=== PATIENT | female | born 2005 | race Caucasian/White ===

== ENCOUNTER 2024-01-28 19:47 | Inpatient (IN) ==
[2024-01-28 20:31] LABS: Basophils # (auto) 0.09 K/uL (0.00-0.20); Basophils % (auto) 0.9 %; Eosinophils # (auto) 0.09 K/uL (0.00-0.50); Eosinophils % (auto) 0.9 %; Hematocrit (blood only) 39.1 % (37.0-47.0); Hemoglobin 13.5 g/dl (12.0-16.0); Immature Granulocytes # (auto) 0.04 K/uL (0.01-0.20); Immature Granulocytes % (auto) 0.4 %; Lymphocytes # (auto) 3.17 K/uL (1.20-3.40); Lymphocytes % (auto) 32.7 %; Mean Corpuscular Hemoglobin 30.8 pg (25.0-34.0); Mean Corpuscular Hgb Conc 34.5 g/dL (32.0-36.0); Mean Corpuscular Volume 89.1 fL (80.0-100.0); Mean Platelet Volume 8.9 fL (9.4-12.4); Monocytes # (auto) 0.81 K/uL (0.11-0.59); Monocytes % (auto) 8.4 %; Neutrophils # (auto) 5.48 K/uL (1.40-6.50); Neutrophils % (auto) 56.7 %; Platelet Count 391 K/uL (130-400); RDW Coefficient of Variation 11.9 % (11.5-14.5); RDW Standard Deviation 38.7 fL (36.4-46.3); Red Blood Count 4.39 M/uL (4.20-5.40); White Blood Count 9.68 K/ul (4.8-10.8)
[2024-01-28 20:37] LABS: iSTAT Hemoglobin 13.6 g/dl (12.0-16.0); iSTAT Ionized Calcium 1.21 mmol/l; iSTAT Potassium 3.7 mmol/L (3.3-5.0)
[2024-01-28] MEDS: SODIUM CHLORIDE 0.9% 1,000 ML IV SCH (20:45)
[2024-01-28 20:46] LABS: Albumin Level 4.7 gm/dl (3.4-5.0); BUN Creatinine Ratio 16.9 (10-20); Bilirubin,Total 0.4 mg/dl (0.2-1.0); Calcium 9.4 mg/dl (8.6-10.3); Creatinine Clr Calc Pharmacy 92.9 ml/min; Globulin 2.4 gm/dl (2.5-4.0); Potassium 3.7 mmol/L (3.5-5.1); Total Protein 7.1 gm/dl (6.0-8.3)
--- NOTE | 2024-01-28 20:50 | CT Scan Report ---
Exam(s): CT C SPINE EXAM: CT Cervical Spine Without Intravenous Contrast CLINICAL HISTORY: Reason for exam: trauma. TECHNIQUE: Axial computed tomography images of the cervical spine without intravenous contrast. CTDI is 23.06 mGy and DLP is 447.11 mGy-cm. Automated exposure control was utilized for the study. A dose lowering technique was utilized adhering to the principles of ALARA. COMPARISON: No relevant prior studies available. FINDINGS: Vertebrae: Congenital nonunion of the posterior arch of C1. No acute fracture. Discs/spinal canal/neural foramina: No acute findings. No spinal canal stenosis. Soft tissues: Unremarkable. IMPRESSION: No acute findings in the cervical spine. Electronically signed by: Jad Horton MD 01/28/24 20:48 PM
--- NOTE | 2024-01-28 20:53 | CT Scan Report ---
Exam(s): CT HEAD Without Contrast EXAM: CT Head Without Intravenous Contrast CLINICAL HISTORY: Reason for exam: trauma. TECHNIQUE: Axial computed tomography images of the head/brain without intravenous contrast. CTDI is 38.17 mGy and DLP is 546.36 mGy-cm. Automated exposure control was utilized for the study. A dose lowering technique was utilized adhering to the principles of ALARA. COMPARISON: No relevant prior studies available. FINDINGS: Brain: Tiny focus of intraparenchymal hemorrhage involving the left frontal lobe. No significant white matter disease. Ventricles: Unremarkable. No ventriculomegaly. Bones/joints: Unremarkable. No acute fracture. Soft tissues: Soft tissue laceration posterior scalp. Sinuses: Unremarkable as visualized. No acute sinusitis. Mastoid air cells: Unremarkable as visualized. No mastoid effusion. IMPRESSION: Tiny focus of intracranial hemorrhage involving left frontal lobe short interval follow-up CT recommended. Soft tissue laceration posterior scalp. Communications: Call Doctor Intracranial Hemorrhage Electronically signed by: Jad Horton MD 01/28/24 20:51 PM
[2024-01-28] MEDS: ONDANSETRON INJ 2 MG/ML 2 ML VIAL IV STA (20:54)
[2024-01-28] MEDS: MoRPHine SULFATE 2 MG/ML CARP IV STA (20:54)
[2024-01-28] MEDS: ACETAMINOPHEN 1,000 MG/100 ML VIAL IV STA (20:55)
[2024-01-28 21:00] LABS: Partial Thromboplastin Time 26 Seconds (21-31); Prothrombin Time 10.8 Seconds (9.0-12.0)
--- NOTE | 2024-01-28 21:07 | Emergency Department Note ---
ED Visit Note I was asked by my attending, Dr. Martinez, to assist with a head laceration repair. The patient sustained a laceration to the left posterior scalp, approximately 1.5 cm. There is no foreign body present, bleeding is currently controlled. Using sterile procedure, the wound bed was prepped and cleansed with sterile saline and Betadine. No foreign body was retained in the wound. Wound edges were approximated using 2, jason which will need to be removed in 7-10 days. The patient tolerated the procedure well. Bacitracin was applied to the wo und as well as bandage. Please refer to Dr. Martinez's documentation for further patient workup and care.
--- NOTE | 2024-01-28 21:23 | XRay Report ---
Exam(s): XR CXR 1 VIEW EXAM: XR Chest, 1 View CLINICAL HISTORY: Reason for exam: Trauma. TECHNIQUE: Frontal view of the chest. COMPARISON: No relevant prior studies available. FINDINGS: Lungs: Unremarkable. No consolidation. Pleural space: Unremarkable. No pneumothorax. Heart: Unremarkable. No cardiomegaly. Mediastinum: Unremarkable. Normal mediastinal contour. Bones/joints: Unremarkable. No acute fracture. IMPRESSION: Normal chest x-ray. Electronically signed by: Jad Horton MD 01/28/24 21:22 PM
[2024-01-28 22:31] LABS: Appearance Urine Clear (Clear); Bilirubin Urine Negative (Negative); Blood Urine Negative (Negative); Color Urine Yellow; Glucose Urine UA Negative (Negative); Ketones Urine Negative (Negative); Leukocyte Esterase Urine Negative (Negative); Nitrite Urine Negative (Negative); Protein Urine Negative (Negative); Specific Gravity Urine 1.016 (1.000-1.030); Urobilinogen Urine Negative (Negative)
[2024-01-28] MEDS: LIDOCAINE 1% LOCAL 20 ML VIAL INFIL ONE (22:38)
--- NOTE | 2024-01-28 23:41 | CT Scan Report ---
Exam(s): CT HEAD Without Contrast EXAM: CT Head Without Intravenous Contrast CLINICAL HISTORY: Reason for exam: ICH, reevaluate size. TECHNIQUE: Axial computed tomography images of the head/brain without intravenous contrast. CTDI is 36.74 mGy and DLP is 625.8 mGy-cm. Automated exposure control was utilized for the study. A dose lowering technique was utilized adhering to the principles of ALARA. COMPARISON: Exam performed earlier on the same date FINDINGS: Brain: Continued interval evolution of tiny focus of intraparenchymal hemorrhage involving the left frontal lobe. This area of hemorrhage is much less conspicuous on the current exam. No new areas of intracranial hemorrhage. No significant white matter disease. Ventricles: Unremarkable. No ventriculomegaly. Bones/joints: Unremarkable. No acute fracture. Soft tissues: Unremarkable. Sinuses: Unremarkable as visualized. No acute sinusitis. Mastoid air cells: Unremarkable as visualized. No mastoid effusion. IMPRESSION: Continued evolution of tiny focus of intraparenchymal hemorrhage within the left frontal lobe. This area is much less conspicuous on the current study. Electronically signed by: Jad Horton MD 01/28/24 23:40 PM
--- NOTE | 2024-01-29 00:12 | History & Physical Report ---
Date of Service January 29, 2024 Assessment & Plan (1) Intracranial hemorrhage: Plan: Traumatic brain injury - left frontal lobe intracranial hemorrhage - improving. Head lac stapled in the ED - will need removed in 7-10 days. Moderate headache. No neurological deficits. Will monitor bleed with a CT Head at 12 hours and 24 hours after incident. Tylenol for pain. If needed can do morphine, but ideally would avoid medications that can change neurological status. Q2H neuro checks, tele unit CT Head @ 12 hours and 24 hours Seizure precautions Tylenol and Zofran PRN (2) Traumatic brain injury: Plan: Anticipate concussion symptoms for at least the next two weeks - avoid/minimize screen time, dim lights, no contact sports or high impact exercises, avoid NSAIDs. Depending on how symptomatic she is, she may benefit from a brief absence from school. Will need school note. (3) Alcohol intoxication: Plan: Ethyl alcohol 233.5 on presentation. Appears clinically sober. Low likelihood for withdrawal. Will continue to monitor. Plan Code status: full DVT ppx: chemo ppx contraindicated, SCDs FENGI: Regular Dispo: Tele unit History of Present Illness Chief Complaint: fall Primary Care Provider: [facility] 18 y/o with no significant PMHx here after a fall. Her friend picked her up out of no where and then fell down the stairs with her. About 10 stairs total. Patient struck the back of her head and started bleeding. No loss of consciousness. She remembers the entire incident. No nausea or vomiting following the episode. Patient with a pretty significant headache. No other symptoms. No nausea, CP, SOB, abdominal pain, or change in mental status. Patient was found to have a small focus of hemorrhage in the left frontal lobe. Improving on repeat CT. ED physician did speak to [place] [facility] [place] and they felt she was stable for admission and monitoring here. Patient and mother are concerned about school as finals are coming up. 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 Beliefs That Will Affect Care: None Current Living Situation: Other Feels Safe at Home: Yes Assistive Devices: None Review of Systems 2 Review of Systems: See HPI Physical Exam 2 Physical Exam: Gen: well appearing patient in NAD HEENT: AT TN MMM OP clear Resp: CTAB no wheezing no increased work of breathing CV: RRR no m/r/g clinically well perfused Abd: non-distended MSK: no obvious deformities Skin: no rashes or bruising Neuro: alert and oriented, PERRL, EOMI, CN II-XII tested and intact, vision and hearing grossly intact, intact finger to nose, negative rhomberg, able to spell 'world' forwards and backwards, normal gait, sensation to light touch intact and symmetric, 5/5 strength in all muscle groups Psych: appropriate mood and affect Results & Data Results & Data Vital Signs (Past 12 Hours) Vital Signs Temp Pulse Pulse Resp BP BP Pulse Ox 01/28/24 23:00 86 19 99/72 L 99 01/28/24 22:00 105 H 20 127/71 99 01/28/24 21:00 100 H 20 115/78 99 01/28/24 20:42 103 H 22 119/72 99 01/28/24 20:15 116 H 22 99 01/28/24 20:14 105 H 22 98 01/28/24 20:13 128 H 01/28/24 20:00 98 01/28/24 20:00 22 98 01/28/24 20:00 36.8 C 129 H 22 146/111 H 99 01/28/24 19:53 36.8 C 133 H 20 146/111 H 100 O2 Del Method 01/28/24 23:00 Room Air 01/28/24 22:00 Room Air 01/28/24 21:00 Room Air 01/28/24 20:42 Room Air 01/28/24 20:15 Room Air 01/28/24 20:14 Room Air 01/28/24 20:13 01/28/24 20:00 Room Air 01/28/24 20:00 Room Air 01/28/24 20:00 Room Air 01/28/24 19:53 Room Air Laboratory Results 01/28/24 20:03 01/28/24 20:03 Diagnostic Findings Cervical Spine CT 01/28/24 20:14 FINDINGS: Vertebrae: Congenital nonunion of the posterior arch of C1. No acute fracture. Discs/spinal canal/neural foramina: No acute findings. No spinal canal stenosis. Soft tissues: Unremarkable. IMPRESSION: No acute findings in the cervical spine. Chest X-Ray 01/28/24 20:14 FINDINGS: Lungs: Unremarkable. No consolidation. Pleural space: Unremarkable. No pneumothorax. Heart: Unremarkable. No cardiomegaly. Mediastinum: Unremarkable. Normal mediastinal contour. Bones/joints: Unremarkable. No acute fracture. IMPRESSION: Normal chest x-ray. Head CT 01/28/24 20:14 EXAM: FINDINGS: Brain: Tiny focus of intraparenchymal hemorrhage involving the left frontal lobe. No significant white matter disease. Ventricles: Unremarkable. No ventriculomegaly. Bones/joints: Unremarkable. No acute fracture. Soft tissues: Soft tissue laceration posterior scalp. Sinuses: Unremarkable as visualized. No acute sinusitis. Mastoid air cells: Unremarkable as visualized. No mastoid effusion. IMPRESSION: Tiny focus of intracranial hemorrhage involving left frontal lobe short interval follow-up CT recommended. Soft tissue laceration posterior scalp. Head CT 01/28/24 23:00 FINDINGS: Brain: Continued interval evolution of tiny focus of intraparenchymal hemorrhage involving the left frontal lobe. This area of hemorrhage is much less conspicuous on the current exam. No new areas of intracranial hemorrhage. No significant white matter disease. Ventricles: Unremarkable. No ventriculomegaly. Bones/joints: Unremarkable. No acute fracture. Soft tissues: Unremarkable. Sinuses: Unremarkable as visualized. No acute sinusitis. Mastoid air cells: Unremarkable as visualized. No mastoid effusion. IMPRESSION: Continued evolution of tiny focus of intraparenchymal hemorrhage within the left frontal lobe. This area is much less conspicuous on the current study. Supervising Physician Co-Signing Physician Notes Patient seen and examined, chart reviewed, case discussed with Dr. Valentino and I agree with the assessment and plan as above. In brief, patient is a 18yo female s/p fall down 10 stairs after her friend picked her up and fell with her. She has a small occipital laceration which has been repaired with 2 jason. Small left frontal intraparenchymal hemorrhage noted on initial CT - repeat CT at 3 hours with improvement in hemorrhage. Patient denies LOC and has full recollection of the entire event. Intoxicated at the time - EtOH level 233.5 upon arrival Denies neck pain - CT of the neck NEGATIVE On exam patient is AA&O x 4, sitting up in bed, NAD Skin - laceration repair with 2 jason, well approximated with no active bleeding. No abrasions/tears elsewhere HEENT - PERRL, MMM, Neck supple and non-tender, no Salcido's sign or Raccoon eyes Heart - +S1/S2, regular, no m/r/g Lungs- CTA Abd - soft, NT/ND Ext - warm, well perfused Neuro - AA&O x 4, MS 5/5 in UE/LE bilaterally Labs and images reviewed Assessment/Plan 18yo female s/p fall down appx 10 stairs with posterior head trauma/laceration, small left frontal intraparenchymal hemorrhage. Suspect coup-counter coup injury mechanism. Hemorrhage has improved on repeat CT imaging. -Will admit for ongoing monitoring, neuro check with [facility] q 2 hours -Repeat CT head at 12 and 12 hours to assure continued improvement of IPH and monitor for SDH -Concussion precautions including brain rest and physical rest for 24 - 48 hours with gradual return to exercise and daily activities as tolerated -Remainder as above + Resident Activity Tracking Resident Involvement: Resident Care Provided Care Provided: Adult Hospital Medicine (2) Traumatic brain injury Encounter type: initial encounter Loss of consciousness presence/duration: w ithout LOC Qualified Code(s): S06.9X0A - Unspecified intracranial injury without loss of consciousness, initial encounter (3) Alcohol intoxication Complication of substance-induced condition: uncomplicated Qualified Code(s): F10.920 - Alcohol use, unspecified with intoxication, uncomplicated
[2024-01-29] MEDS ORDERED: ONDANSETRON INJ 2 MG/ML 2 ML VIAL IV PRN (02:17)
[2024-01-29] MEDS ORDERED: POLYETHYLENE (MIRALAX) 17 GM PACK PO PRN (02:17)
[2024-01-29 02:48] VITALS: O2SAT 99
[2024-01-29] MEDS: ACETAMINOPHEN 500 MG TAB PO PRN (04:07)
[2024-01-29 05:55] LABS: Hematocrit (blood only) 34.8 % (37.0-47.0); Mean Corpuscular Hemoglobin 30.9 pg (25.0-34.0); Mean Corpuscular Hgb Conc 34.5 g/dL (32.0-36.0); Mean Corpuscular Volume 89.7 fL (80.0-100.0); Mean Platelet Volume 9.1 fL (9.4-12.4); Platelet Count 312 K/uL (130-400); RDW Standard Deviation 39.6 fL (36.4-46.3); Red Blood Count 3.88 M/uL (4.20-5.40); White Blood Count 8.43 K/ul (4.8-10.8)
[2024-01-29 06:12] LABS: BUN Creatinine Ratio 16.4 (10-20); Calcium 8.6 mg/dl (8.6-10.3); Potassium 3.6 mmol/L (3.5-5.1)
[2024-01-29 06:42] VITALS: RESP 18
--- NOTE | 2024-01-29 07:04 | Hospitalist Progress Note ---
Date of Service January 29, 2024 Assessment & Plan (1) Intracranial hemorrhage: (2) Traumatic brain injury: (3) Alcohol intoxication: Plan Pt is a 18 yo female with no significant past medical history who presents to the hospital on 01/27 for traumatic brain injury after falling down a flight of stairs at a constitution party. Traumatic brain injury Intracranial hemorrhage - head CT noted left frontal lobe intracranial hemorrhage - improved on repeat scan pending 24 hr scan at 8 pm tonight for stability - head lac stapled in the ED that will need removed in 7-10 days - anticipate concussion symptoms for at least the next two weeks - avoid/minimize screen time, dim lights, no contact sports or high impact exercises, avoid NSAIDs. - Depending on how symptomatic she is, she may benefit from a brief absence from school. - prn meds in for pain/nausea Alcohol intoxication - Ethyl alcohol 233.5 on presentation. Appears clinically sober. Low likelihood for withdrawal. Will continue to monitor. DVT ppx: chemo ppx contraindicated, SCDs Admission and Anticipated Discharge Date Admission Date: January 29, 2024 Subjective Today, pt seen at bedside this morning. She states she is feeling okay this morning, just tired after a long night with a headache. No nausea or vomiting, no vision changes such as double vision or blurry vision. Headache is not worsening. Review of Systems Review of Systems: Per HPI. Physical Exam Physical Exam: General:Alert and oriented, no acute distress, HEENT: Normocephalic, moist oral mucosa, Cardio: Regular rate and rhythm, no murmur, Resp:Lungs clear to auscultation b/l, no wheezes or rhonchi, Skin: Warm, pink, dry, Results & Data Results & Data Vital Signs (Past 12 Hours) Vital Signs Temp Pulse Pulse Resp BP BP Pulse Ox 01/29/24 06:41 36.8 C 75 18 107/63 01/29/24 02:47 36.8 C 90 19 116/62 99 01/29/24 02:17 36.7 C 90 16 110/72 01/29/24 02:14 99 H 01/29/24 01:00 83 19 116/71 97 01/29/24 00:00 90 17 120/70 98 01/28/24 23:00 86 19 99/72 L 99 01/28/24 22:00 105 H 20 127/71 99 01/28/24 21:00 100 H 20 115/78 99 01/28/24 20:42 103 H 22 119/72 99 01/28/24 20:15 116 H 22 99 01/28/24 20:14 105 H 22 98 01/28/24 20:13 128 H 01/28/24 20:00 98 01/28/24 20:00 22 98 01/28/24 20:00 36.8 C 129 H 22 146/111 H 99 01/28/24 19:53 36.8 C 133 H 20 146/111 H 100 O2 Del Method 01/29/24 06:41 01/29/24 02:47 Room Air 01/29/24 02:17 Room Air 01/29/24 02:14 01/29/24 01:00 Room Air 01/29/24 00:00 Room Air 01/28/24 23:00 Room Air 01/28/24 22:00 Room Air 01/28/24 21:00 Room Air 01/28/24 20:42 Room Air 01/28/24 20:15 Room Air 01/28/24 20:14 Room Air 01/28/24 20:13 01/28/24 20:00 Room Air 01/28/24 20:00 Room Air 01/28/24 20:00 Room Air 01/28/24 19:53 Room Air Resident Activity Tracking Resident Involvement: Resident Care Provided Care Provided: Adult Hospital Medicine (2) Traumatic brain injury Encounter type: initial encounter Loss of consciousness presence/duration: without LOC Qualified Code(s): S06.9X0A - Unspecified intracranial injury without loss of consciousness, initial encounter (3) Alcohol intoxication Complication of substance-induced condition: uncomplicated Qualified Code(s): F10.920 - Alcohol use, unspecified with intoxication, uncomplicated
[2024-01-29 07:31] VITALS: BP 102/61; TEMP 97.9
--- NOTE | 2024-01-29 08:07 | Electrocardiogram Report ---
Test Reason : Blood Pressure : */* mmHG Vent. Rate : 96 BPM Atrial Rate : 96 BPM P-R Int : 142 ms QRS Dur : 82 ms QT Int : 348 ms P-R-T Axes : 80 81 45 degrees QTcB Int : 439 ms Normal sinus rhythm Normal ECG No previous ECGs available Confirmed by Pedrito Becerra ([id number]) on 01/29/2024 8:07:12 AM Referred By: REFERRED SELF Confirmed By: Pedrito Becerra
--- NOTE | 2024-01-29 09:09 | CT Scan Report ---
CT head/brain wo con CLINICAL HISTORY: 18 years-old Female with brain bleed 12 hour repeat. Acute head trauma TECHNIQUE: Multiple axial CT images of the head were obtained without contrast. A dose lowering tech nique was utilized adhering to the principles of ALARA. CT DOSE: 547.75 mGy.cm COMPARISON: None. FINDINGS: No acute intracranial hemorrhage, midline shift, intracranial mass, hydrocephalus, territorial ischem ia or abnormal extra-axial collection. The calvarium is intact. The paranasal sinuses, mastoid air cells, and middle ear cavities are clear . IMPRESSION: 1. No acute intracranial abnormality, specifically there is no evidence of acute intracranial hemorrh age. The previously questioned ill-defined focus of increased attenuation within the anterior left fr ontal lobe was artifactual. 2. No acute calvarial fracture. Findings were discussed with Dr. Shana Leonard on 01/29/2024 at 9:07 AM. ACT 112: Negative or not required by law. The above report was generated using voice recognition software. It may contain grammatical, syntax o r spelling errors. Electronically signed by: Thuan Delacruz M.D. 01/29/2024 9:07 AM
--- NOTE | 2024-01-29 09:28 | Discharge Summary ---
Date of Service January 29, 2024 Admission HPI Per Admitting Provider 18 y/o with no significant PMHx here after a fall. Her friend picked her up out of no where and then fell down the stairs with her. About 10 stairs total. Patient struck the back of her head and started bleeding. No loss of consciousness. She remembers the entire incident. No nausea or vomiting following the episode. Patient with a pretty significant headache. No other symptoms. No nausea, CP, SOB, abdominal pain, or change in mental status. Patient was found to have a small focus of hemorrhage in the left frontal lobe. Improving on repeat CT. ED physician did speak to [facility] @ [facility] and they felt she was stable for admission and monitoring here. Patient and mother are concerned about school as finals are coming up. Admission Exam Per Admitting Provider General:Alert and oriented, no acute distress, HEENT: Normocephalic, moist oral mucosa, Cardio: Regular rate and rhythm, no murmur, Resp:Lungs clear to auscultation b/l, no wheezes or rhonchi, Skin: Warm, pink, dry, Principal Diagnosis Traumatic head injury Discharge Exam General:Alert and oriented, no acute distress, HEENT: Normocephalic, moist oral mucosa, Cardio: Regular rate and rhythm, no murmur, Resp:Lungs clear to auscultation b/l, no wheezes or rhonchi, Skin: Warm, pink, dry, Discharge Data Allergies Allergy/AdvReac Type Severity Reaction Status Date / Time banana Allergy Unknown Unverified 01/29/24 00:36 Consultations 01/28/24 23:57 ED Decision to Admit Stat Ordered Studies 01/28/24 20:14 CT cervical spine wo con Stat CT head/brain wo con Stat 01/28/24 23:00 CT head/brain wo con Urgent 01/29/24 08:00 CT head/brain wo con Routine 01/29/24 20:00 CT head/brain wo con Routine Hospital Course (1) Intracranial hemorrhage: (2) Traumatic brain injury: (3) Alcohol intoxication: Plan Pt is a 18 yo female with no significant past medical history who presents to the hospital on 01/27 for traumatic brain injury after falling down a flight of stairs at a constitution party. Traumatic brain injury without intracranial hemorrhage - head CT noted left frontal lobe intracranial hemorrhage on admission-> 12 hour scan this morning noting this was most likely artifact as this foci is completely absent on [address] scans - head lac stapled in the ED that will need removed in 7-10 days - anticipate concussion symptoms for at least the next two weeks - avoid/minimize screen time, dim lights, no contact sports or high impact exercises, avoid NSAIDs. - will write for off of school until after thanksgiving - to f/u with pcp after discharge Total Time Total Time Spent Total Time Spent (In Minutes): As per attending attestation Discharge Plan Discharge Items Patient Disposition: Home - Self-Care Reason For Visit: FALL Discharge Diagnosis: Traumatic brain injury Activity: As commented below Activity Comment: Activity as tolerated Non-emergency contact: Primary Care Provider Call non-emergency contact if: you have any medication questions, your symptoms worsen, your pain is not controlled and your pain is worsening Follow-up/Referrals: [facility] [Primary Care Provider] - Diet: Regular Addtl Attending Provider Instructions: You were admitted to the hospital for a traumatic brain injury following a fall down a flight of stairs. You had a CT scan done of your head which initially showed maybe a small area of bleed in the brain that was noted on repeat scans to be totally gone, suggesting it was just machine artifact, meaning you had a head injury but we do not believe there is actually an associated brain bleed. You may notice over the coming weeks concussion symptoms such as lingering headache and difficulty concentrating. Try to minimize or avoid screen time as much as possible and dim lights. You should avoid contact sports and high impact exercises for at least the next 1 month unless advised otherwise by your primary care physician. You may take tylenol for pain for the rest of today. You can take up to 1000 mg three times daily (every 8 hours). You may take ibuprofen products (ex. Advil, Aleve, naproxen) starting tomorrow if desired for headache relief, but no more than 600 mg at a time. If ibuprofen is not enough you can take ibuprofen and tylenol (they are different medications and do not directly interact so they are okay to take at the same time). You will need to follow up with your primary care physician or return to the ER in 7-10 days for the jason to be removed. Please do not scrub the laceration for the next few days as it closes up and starts to heal. You may shower and let water run over the area. Do not submerge the area such as in a hot tub or pool until your jason are removed. Please call your primary care physician tomorrow to set up a hospital follow-up appointment this upcoming week. If you do not have a primary care physician please contact the [facility] office at [address] (the building directly in front of the hospital) to establish with a physician. Our number is [phone]. We have attached a school note giving you off this next week and next week of school. If you need off longer, please talk to your primary care physician. Pending Studies at Discharge: No Stand-Alone Forms: My [facility] [employer], Work/School Release Medications and DC Order Prescriptions: No Action No Known Home Medications Discharge Orders: Discharge Order (Routine); Ordered 01/29/24 Ordered By: Marina Knowles/Other Patient Handouts: Coping with Concussion, After a Concussion Admission Data Admit Date/Time: 01/29/24 00:53 Attending Provider: Shana Leonard Admit Provider: Franchesca Valentino Primary Care Provider: [facility] Other Providers: Jennifer Guillen Other Interventions: Discharge Summary Assessment (RN) Last Done: 01/29/24 09:47 Supervising Physician Co-Signing Physician Notes Attending Physician Supervision Note: I independently interviewed and examined the patient and verified the cool history and physical, reviewed labs and image studies and agree with findings and care plan noted above. Resident Activity Tracking Resident Involvement: Resident Care Provided Care Provided: Adult Hospital Medicine
[2024-01-29 09:52] VITALS: PULSE 97
[2024-01-29] MEDS: INFLUENZA VACC TS2024-25(6m+)/PF (IIV3) 0.5mL Syr IM ONE (10:30)
--- NOTE | 2024-01-29 13:39 | Billing Data ---
Date of Service January 29, 2024 Coding Level of Care Code 28309 INT INP/OBS CARE
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
== END 2024-01-29 10:32 | disposition home or self-care (01) | DRG 87 ==
LOC: ED 19:47 → 2S 01-29 00:53 → SUATTDRO 01-29 00:53 → 2S 01-29 02:47